=== PATIENT | female | born 1955 | race Two or more races ===

== ENCOUNTER 2020-09-25 09:16 | Outpatient (CLI) | payer OTHER | END 2020-09-25 16:29 | disposition home or self-care (01) | LOC: OFIC 805 09:16 | PROVIDERS: ATTEND Otolaryngology Otology & Neurotology | DX: R13.19 Other dysphagia (principal); J02.8 Acute pharyngitis due to other specified organisms ==

== ENCOUNTER 2021-05-29 15:09 | Inpatient (IN) | payer OTHER ==
[~2021-05-29] VITALS: Ht 167.6 cm; Wt 68.0 kg
[2021-06-01] MEDS ORDERED: CEFDINIR300 MG PO (17:49)
[2021-06-01] MEDS ORDERED: INTESTINEX680 M1 PO (17:49)
[2021-06-01] MEDS ORDERED: GABAPENTIN300 MG PO (17:51)
== END 2021-06-01 20:08 | disposition home or self-care (01) | DRG 603 ==
LOC: ER 15:09 → SURH 19:45
PROVIDERS: ADMIT Internal Medicine Geriatric Medicine; ATTEND Internal Medicine Geriatric Medicine
PROC: 0H98XZZ Drainage of Buttock Skin, External Approach (ICD-10-PCS; principal; 2021-05-29)
PROC: 4A12X4Z Monitoring of Cardiac Electrical Activity, External Approach (ICD-10-PCS; 2021-05-29)
DX: L02.31 Cutaneous abscess of buttock (principal); Z20.822 Contact with and (suspected) exposure to COVID-19

== ENCOUNTER 2022-02-17 13:17 | Emergency (ER) | payer OTHER ==
[~2022-02-17] VITALS: Ht 167.6 cm; Wt 62.6 kg
[~2022-02-17 13:17] MED LIST: CEFDINIR300 MG PO; GABAPENTIN300 MG PO; INTESTINEX680 M1 PO
[2022-02-17] MEDS ORDERED: RASAGILINE MESYL1 MG (13:59)
[2022-02-17] MEDS ORDERED: MIRAPEX0.5 MG PO (14:04)
[2022-02-17] MEDS ORDERED: VITAMIN B-121000 MC4 (14:05)
[2022-02-17] MEDS ORDERED: ZOLOFT50 MG PO (14:06)
[2022-02-17] MEDS ORDERED: BUSPIRONE HCL15 MG PO (14:07)
[2022-02-17] MEDS ORDERED: VITAMIN D310 MCG/1 M (14:08)
[2022-02-17] MEDS ORDERED: ESTAZOLAM2 MG (14:12)
== END 2022-02-17 17:52 | disposition home or self-care (01) ==
LOC: ER 13:17
DX: S80.812A Abrasion, left lower leg, initial encounter (principal); S80.811A Abrasion, right lower leg, initial encounter; W55.01XA Bitten by cat, initial encounter; Y93.9 Activity, unspecified; Y92.9 Unspecified place or not applicable; Z88.2 Allergy status to sulfonamides

== ENCOUNTER 2023-01-12 14:15 | Inpatient (IN) | payer OTHER ==
[~2023-01-12] VITALS: Ht 170.2 cm; Wt 72.6 kg
[~2023-01-12 14:15] MED LIST changes: +BUSPIRONE HCL15 MG PO; +ESTAZOLAM2 MG; +MIRAPEX0.5 MG PO; +RASAGILINE MESYL1 MG; +VITAMIN B-121000 MC4; +VITAMIN D310 MCG/1 M; +ZOLOFT50 MG PO
[2023-01-12] MEDS ORDERED: SERTRALINE HCL100 MG (14:48)
[2023-01-12] MEDS ORDERED: VITAMIN D31250 MCG (14:49)
[2023-01-12] MEDS ORDERED: ZYRTEC10 M3 (14:49)
[2023-01-12] MEDS ORDERED: ESTAZOLAM2 MG (14:49)
[2023-01-12] MEDS ORDERED: RASAGILINE MESYL1 MG (14:49)
[2023-01-12] MEDS ORDERED: EXELON1 EAC1 (14:50)
--- NOTE | 2023-01-12 14:50 | NUR ---
PTE ALERTA Y ORIENTADO POR KRISTEN ESFERAS CON BUEN PATRON RESPIRATORIO. FAMILIAR REFIERE QUE PTE TIENE DOLOR AL ORINAR DESDE HACE CELESTE SEMANA
[2023-01-19] MEDS ORDERED: RIVASTIGMINE1 EAC1 TD (13:28)
[2023-01-19] MEDS ORDERED: SERTRALINE HCL100 MG PO (13:28)
[2023-01-19] MEDS ORDERED: RASAGILINE MESYL1 MG PO (13:28)
[2023-01-19] MEDS ORDERED: ZYRTEC10 M3 PO (13:28)
[2023-01-19] MEDS ORDERED: ESTAZOLAM2 MG PO (13:28)
== END 2023-01-19 14:03 | disposition home or self-care (01) | DRG 690 ==
LOC: ER 14:15 → MEDI 16:43 → SURH 17:51
PROVIDERS: ADMIT Internal Medicine Geriatric Medicine; ATTEND Internal Medicine Geriatric Medicine
DX: N39.0 Urinary tract infection, site not specified (principal); F02.82 Dementia in other diseases classified elsewhere, unspecified severity, with psychotic disturbance; F32.9 Major depressive disorder, single episode, unspecified; G20 Parkinson's disease; G31.09 Other frontotemporal neurocognitive disorder; Z20.822 Contact with and (suspected) exposure to COVID-19; Z86.19 Personal history of other infectious and parasitic diseases